=== PATIENT | male | born 1990 | race Two or more races ===

== ENCOUNTER 2017-05-05 23:11 | Emergency (ER) | payer OTHER ==
[~2017-05-05 23:11] MED LIST: BENZ200C15 PO; DIPH-1 PO; HYDR RC; HYDR28.33 TOP; NAPR500T75 PO; ONDA4TAB PO; PROM5SYR PO
--- NOTE | 2017-05-05 23:16 | ER Report ---
History and Physical Time Seen By MD: 23:13 HPI/ROS CHIEF COMPLAINT: Diarrhea and crampy abdominal pain HISTORY OF PRESENT ILLNESS: 27-year-old male presents ambulatory to the ER complaining of diarrhea for one day. He notes diffuse abdominal cramping and some nausea. He's had no vomiting. He ate some cake that was left over last night. Patient notes some irritation of his chronic hemorrhoids. Patient denies fever or chills. Patient denies recent antibiotic use or exposure to ill contacts. REVIEW OF SYSTEMS: Respiratory: No cough, no dyspnea. Cardiovascular: No chest pain, no palpitations. Gastrointestinal: As above Musculoskeletal: No back pain. Allergies: Coded Allergies: No Known Drug Allergies (Unverified , 05/05/17) Home Meds Active Scripts Ondansetron (ZOFRAN ODT) 4 Mg Tab.rapdis, 4 MG PO every 6 hours Y for NAUSEA/ VOMITING, #15 TAB TAKE 1 TABLET BY MOUTH EVERY 12 HOURS Prov:STEPHANIE HILL DO 05/05/17 Discontinued Scripts Hydrocortisone (Proctosol-Hc) 2.5 % Crm.pe.torsten, 1 TORSTEN TOP BID, #1 TUBE Prov:JOHN LU PA-C 12/17/16 Past Medical/Surgical History Patient has a past medical history of hemorrhoids, constipation, depression. Patient has surgical history of oral surgery. Reviewed Nurses Notes: Yes Old Medical Records Reviewed: Yes Hx Smoking: Yes Smoking Status: Current: Every Day Smoker Hx Substance Use Disorder: No Hx Alcohol Use: No (FORMER) Constitutional Vital Sign - Last 24 Hours 05/05/17 05/05/17 05/05/17 05/05/17 23:16 23:26 23:30 23:41 Temp 97.9 Pulse 104 87 75 Resp 16 B/P (MAP) 138/95 121/86 (98) Pulse Ox 94 98 94 O2 Delivery Room Air 05/05/17 05/05/17 05/06/17 05/06/17 23:45 23:56 00:00 00:11 Pulse 67 ??? B/P (MAP) 119/84 (96) 119/86 (97) Pulse Ox 98 95 05/06/17 00:16 Pulse ??? Pulse Ox 97 Physical Exam General Appearance: The patient is alert, has no immediate need for airway protection and no current signs of toxicity. Vital signs stable, afebrile, pulse ox normal Eyes: Pupils equal and round no injection. Respiratory: Chest is non tender, lungs are clear to auscultation. Cardiac: regular rate and rhythm Gastrointestinal: Abdomen is soft and non tender, no masses, bowel sounds normal. Musculoskeletal: Neck: Neck is supple and non tender. Extremities have full range of motion and are non tender. Skin: No rashes or lesions. DIFFERENTIAL DIAGNOSIS: After history and physical exam differential diagnosis was considered for food poisoning, viral syndrome, gastroenteritis, IBS. Medical Decision Making Data Points Result Diagram: 05/05/172 05/05/172 Laboratory Hematology Test 05/05/17 23:22 Red Blood Count 6.12 M/uL (4.00-5.60) Mean Corpuscular Volume 82.1 fL (80.0-96.0) Mean Corpuscular Hemoglobin 27.4 pg (26.0-33.0) Mean Corpuscular Hemoglobin Concent 33.3 g/dL (32.0-36.0) Red Cell Distribution Width 13.7 % (11.5-14.5) Mean Platelet Volume 6.9 fL (7.2-11.1) Neutrophils (%) (Auto) 24.5 % (39.4-72.5) Lymphocytes (%) (Auto) 65.8 % (17.6-49.6) Monocytes (%) (Auto) 7.6 % (4.1-12.4) Eosinophils (%) (Auto) 1.1 % (0.4-6.7) Basophils (%) (Auto) 1.0 % (0.3-1.4) Nucleated RBC Relative Count (auto) 0.1 /100WBC Neutrophils # (Auto) 1.2 K/uL (2.0-7.4) Lymphocytes # (Auto) 3.3 K/uL (1.3-3.6) Monocytes # (Auto) 0.4 K/uL (0.3-1.0) Eosinophils # (Auto) 0.1 K/uL (0.0-0.5) Basophils # (Auto) 0.1 K/uL (0.0-0.1) Nucleated RBC Absolute Count (auto) 0.00 K/uL Peripheral Blood Smear Yes Y/N Sodium Level 141 mmol/L (137-145) Potassium Level 3.2 mmol/L (3.5-5.0) Chloride Level 98 mmol/L (98-107) Carbon Dioxide Level 28 mmol/L (22-30) Blood Urea Nitrogen 13 mg/dl (9-21) Creatinine 1.00 mg/dl (0.66-1.25) Glomerular Filtration Rate Calc > 60.0 Random Glucose 117 mg/dl (75-110) Calcium Level 9.8 mg/dl (8.4-10.2) Total Bilirubin 1.6 mg/dl (0.2-1.3) Aspartate Amino Transf (AST/SGOT) 51 U/L (0-35) Alanine Aminotransferase (ALT/SGPT) 31 U/L (0-56) Alkaline Phosphatase 59 U/L (0-126) Total Protein 8.7 gm/dl (6.3-8.2) Albumin 4.9 g/dl (3.5-5.0) Chemistry Test 05/05/17 23:22 White Blood Count 5.1 k/uL (4.5-11.0) Red Blood Count 6.12 M/uL (4.00-5.60) Hemoglobin 16.7 g/dL (14.0-18.0) Hematocrit 50.3 % (42.0-52.0) Mean Corpuscular Volume 82.1 fL (80.0-96.0) Mean Corpuscular Hemoglobin 27.4 pg (26.0-33.0) Mean Corpuscular Hemoglobin Concent 33.3 g/dL (32.0-36.0) Red Cell Distribution Width 13.7 % (11.5-14.5) Platelet Count 305 K/uL (150-450) Mean Platelet Volume 6.9 fL (7.2-11.1) Neutrophils (%) (Auto) 24.5 % (39.4-72.5) Lymphocytes (%) (Auto) 65.8 % (17.6-49.6) Monocytes (%) (Auto) 7.6 % (4.1-12.4) Eosinophils (%) (Auto) 1.1 % (0.4-6.7) Basophils (%) (Auto) 1.0 % (0.3-1.4) Nucleated RBC Relative Count (auto) 0.1 /100WBC Neutrophils # (Auto) 1.2 K/uL (2.0-7.4) Lymphocytes # (Auto) 3.3 K/uL (1.3-3.6) Monocytes # (Auto) 0.4 K/uL (0.3-1.0) Eosinophils # (Auto) 0.1 K/uL (0.0-0.5) Basophils # (Auto) 0.1 K/uL (0.0-0.1) Nucleated RBC Absolute Count (auto) 0.00 K/uL Peripheral Blood Smear Yes Y/N Glomerular Filtration Rate Calc > 60.0 Calcium Level 9.8 mg/dl (8.4-10.2) Total Bilirubin 1.6 mg/dl (0.2-1.3) Aspartate Amino Transf (AST/SGOT) 51 U/L (0-35) Alanine Aminotransferase (ALT/SGPT) 31 U/L (0-56) Alkaline Phosphatase 59 U/L (0-126) Total Protein 8.7 gm/dl (6.3-8.2) Albumin 4.9 g/dl (3.5-5.0) ED Course/Re-evaluation Clinical Indication for ER IV: Hydration, IV Access ED Course Patient was admitted to an examination room. H&P was done. The differential diagnoses was considered. On clinical examination. Patient is a benign nonsurgical abdomen. He's been having diarrhea for 24 hours. He ate what he thought was spoiled food. He likely has food poisoning. Treated with IV fluid hydration, Zofran for his nausea and Toradol for his abdominal cramps. His diagnostic laboratory studies are unremarkable. He is discharged home. A conservative treatment plan of clear liquid diet and ibuprofen. Patient's given a prescription for Zofran for management of his nausea. Decision to Disposition Date: May 05, 2017 Decision to Disposition Time: 23:47 Depart Departure Latest Vital Signs Vital Signs Date Time Temp Pulse Resp B/P (MAP) Pulse Ox O2 Delivery O2 Flow Rate FiO2 05/06/17 00:16 ??? 97 05/06/17 00:00 119/86 (97) 05/05/17 23:16 97.9 16 Room Air Impression: Primary Impression: Food poisoning Additional Impression: Diarrhea Condition: Improved Disposition: HOME OR SELF-CARE New Scripts Ondansetron (ZOFRAN ODT) 4 Mg Tab.rapdis 4 MG PO every 6 hours Y for NAUSEA/VOMITING, #15 TAB TAKE 1 TABLET BY MOUTH EVERY 12 HOURS Prov: STEPHANIE HILL DO 05/05/17 Patient Instructions: Clear Liquid Diet (ED), Food Poisoning (ED) Additional Instructions: Follow clear liquid diet for 24-48 hours, then advance to the brat diet, bananas , rice, applesauce, toast Avoid fatty food, greasy foods, dairy and vegetables for 48 hours Take ibuprofen 200 mg 3 tablets 3 times a day for inflammatory pain relief Use Zofran/ondansetron to control nausea as needed, one tablet every 6 hours Follow-up with [facility] or your primary care physician if unimproved in 3- 5 days Problem Qualifiers Primary Impression: Food poisoning Encounter type: initial encounter Injury intent: accidental or unintentional Qualified Codes: T62.91XA - Toxic effect of unspecified noxious substance eaten as food, accidental (unintentional), initial encounter Additional Impression: Diarrhea Diarrhea type: unspecified type Qualified Codes: R19.7 - Diarrhea, unspecified STEPHANIE HILL DO May 05, 2017 23:16
[2017-05-05] MEDS ORDERED: NS(*) 0.9% 1000 ML BAG 1,000 ML IV ONE (23:28)
[2017-05-05] MEDS ORDERED: ONDANSETRON 4 MG/2 ML VIAL IVP ONE (23:30)
[2017-05-05] MEDS ORDERED: KETOROLAC 30 MG/ML VIAL IVP ONE (23:30)
[2017-05-05 23:41] LABS: PLATELET COUNT, AUTOMATED 305 K/uL (150-450)
[2017-05-05] MEDS ORDERED: ONDA4TAB PO (23:49)
[2017-05-06] VITALS: BP 119/86
[2017-05-06] MEDS ORDERED: ONDANSETRON 4 MG ODT TH SL ONE (00:05)
== END 2017-05-06 00:21 | disposition home or self-care (01) ==
LOC: ER 23:25
DX: T53.91XA Toxic effect of unspecified halogen derivatives of aliphatic and aromatic hydrocarbons, accidental (unintentional), initial encounter (principal)
CPT/HCPCS: 85025; 96361; 96374; 96375; 99284; J1885; J2405; J7030; S0119; 82040; 82247; 82310; 82374; 82435; 82565; 82947; 84075; 84132; 84155; 84295; 84450; 84460; 84520

== ENCOUNTER 2017-08-10 22:00 | Emergency (ER) | payer OTHER ==
[2017-08-10 22:08] VITALS: BP 139/109
--- NOTE | 2017-08-10 22:17 | ER Report ---
History and Physical Time Seen By MD: 22:10 HPI/ROS CHIEF COMPLAINT: Rectal bleeding HISTORY OF PRESENT ILLNESS: 27-year-old male presents ambulatory to the ER. He noted an episode of rectal bleeding tonight when he passed his bowels. He notes a fair amount of blood in the bowl. Patient has a history of external hemorrhoids was seen here several months ago. He was referred to general surgery. He has not followed up. Patient denies lightheadedness or dizziness. Patient has a history of external hemorrhoids. REVIEW OF SYSTEMS: Respiratory: No cough, no dyspnea. Cardiovascular: No chest pain, no palpitations. Gastrointestinal: No vomiting, no abdominal pain. Musculoskeletal: No back pain. Allergies: Coded Allergies: No Known Drug Allergies (Unverified , 08/10/17) Home Meds Discontinued Scripts Ondansetron (ZOFRAN ODT) 4 Mg Tab.rapdis, 4 MG PO every 6 hours Y for NAUSEA/ VOMITING, #15 TAB TAKE 1 TABLET BY MOUTH EVERY 12 HOURS Prov:STEPHANIE HILL DO 05/05/17 Reviewed Nurses Notes: Yes Old Medical Records Reviewed: Yes Hx Smoking: Yes Smoking Status: Current: Every Day Smoker Hx Substance Use Disorder: No Hx Alcohol Use: No (FORMER) Constitutional Vital Sign - Last 24 Hours 08/10/17 08/10/17 08/10/17 08/10/17 22:08 22:15 22:30 22:45 Temp 97.9 Pulse 77 84 70 69 Resp 16 B/P (MAP) 139/109 Pulse Ox 95 96 96 94 08/10/17 23:00 Pulse 77 Pulse Ox 95 Physical Exam General Appearance: The patient is alert, has no immediate need for airway protection and no current signs of toxicity. Vital signs stable, afebrile, pulse ox normal Eyes: Pupils equal and round no injection. Respiratory: Chest is non tender, lungs are clear to auscultation. Cardiac: regular rate and rhythm Gastrointestinal: Abdomen is soft and non tender, no masses, bowel sounds normal. Rectal examination shows friable external hemorrhoids. Musculoskeletal: Neck: Extremities have full range of motion and are non tender. Skin: No rashes or lesions. DIFFERENTIAL DIAGNOSIS: After history and physical exam differential diagnosis was considered for lower GI bleeding including but not limited to diverticulosis , tumor, AVM, hemorrhoid and anal fissure. Medical Decision Making Data Points Result Diagram: 08/10/17223008/10/172230 Laboratory Hematology Test 08/10/17 22:31 Red Blood Count 5.74 M/uL (4.00-5.60) Mean Corpuscular Volume 81.1 fL (80.0-96.0) Mean Corpuscular Hemoglobin 27.2 pg (26.0-33.0) Mean Corpuscular Hemoglobin Concent 33.5 g/dL (32.0-36.0) Red Cell Distribution Width 14.0 % (11.5-14.5) Mean Platelet Volume 6.7 fL (7.2-11.1) Neutrophils (%) (Auto) 38.4 % (39.4-72.5) Lymphocytes (%) (Auto) 53.6 % (17.6-49.6) Monocytes (%) (Auto) 6.0 % (4.1-12.4) Eosinophils (%) (Auto) 0.6 % (0.4-6.7) Basophils (%) (Auto) 1.4 % (0.3-1.4) Nucleated RBC Relative Count (auto) 0.0 /100WBC Neutrophils # (Auto) 2.9 K/uL (2.0-7.4) Lymphocytes # (Auto) 4.0 K/uL (1.3-3.6) Monocytes # (Auto) 0.5 K/uL (0.3-1.0) Eosinophils # (Auto) 0.0 K/uL (0.0-0.5) Basophils # (Auto) 0.1 K/uL (0.0-0.1) Nucleated RBC Absolute Count (auto) 0.00 K/uL Prothrombin Time 13.7 seconds (12.0-14.4) Prothromb Time International Ratio 1.05 Activated Partial Thromboplast Time 27 seconds (23-35) Sodium Level 140 mmol/L (137-145) Potassium Level 3.4 mmol/L (3.5-5.0) Chloride Level 99 mmol/L (98-107) Carbon Dioxide Level 29 mmol/L (22-30) Blood Urea Nitrogen 15 mg/dl (9-21) Creatinine 0.90 mg/dl (0.66-1.25) Glomerular Filtration Rate Calc > 60.0 Random Glucose 83 mg/dl (75-110) Calcium Level 9.0 mg/dl (8.4-10.2) Total Bilirubin 0.8 mg/dl (0.2-1.3) Aspartate Amino Transf (AST/SGOT) 24 U/L (0-35) Alanine Aminotransferase (ALT/SGPT) 21 U/L (0-56) Alkaline Phosphatase 61 U/L (0-126) Total Protein 7.7 g/dl (6.3-8.2) Albumin 4.3 g/dl (3.5-5.0) Chemistry Test 08/10/17 22:31 White Blood Count 7.5 k/uL (4.5-11.0) Red Blood Count 5.74 M/uL (4.00-5.60) Hemoglobin 15.6 g/dL (14.0-18.0) Hematocrit 46.6 % (42.0-52.0) Mean Corpuscular Volume 81.1 fL (80.0-96.0) Mean Corpuscular Hemoglobin 27.2 pg (26.0-33.0) Mean Corpuscular Hemoglobin Concent 33.5 g/dL (32.0-36.0) Red Cell Distribution Width 14.0 % (11.5-14.5) Platelet Count 297 K/uL (150-450) Mean Platelet Volume 6.7 fL (7.2-11.1) Neutrophils (%) (Auto) 38.4 % (39.4-72.5) Lymphocytes (%) (Auto) 53.6 % (17.6-49.6) Monocytes (%) (Auto) 6.0 % (4.1-12.4) Eosinophils (%) (Auto) 0.6 % (0.4-6.7) Basophils (%) (Auto) 1.4 % (0.3-1.4) Nucleated RBC Relative Count (auto) 0.0 /100WBC Neutrophils # (Auto) 2.9 K/uL (2.0-7.4) Lymphocytes # (Auto) 4.0 K/uL (1.3-3.6) Monocytes # (Auto) 0.5 K/uL (0.3-1.0) Eosinophils # (Auto) 0.0 K/uL (0.0-0.5) Basophils # (Auto) 0.1 K/uL (0.0-0.1) Nucleated RBC Absolute Count (auto) 0.00 K/uL Prothrombin Time 13.7 seconds (12.0-14.4) Prothromb Time International Ratio 1.05 Activated Partial Thromboplast Time 27 seconds (23-35) Glomerular Filtration Rate Calc > 60.0 Calcium Level 9.0 mg/dl (8.4-10.2) Total Bilirubin 0.8 mg/dl (0.2-1.3) Aspartate Amino Transf (AST/SGOT) 24 U/L (0-35) Alanine Aminotransferase (ALT/SGPT) 21 U/L (0-56) Alkaline Phosphatase 61 U/L (0-126) Total Protein 7.7 g/dl (6.3-8.2) Albumin 4.3 g/dl (3.5-5.0) Coagulation Test 08/10/17 22:31 Prothrombin Time 13.7 seconds Prothromb Time International Ratio 1.05 Activated Partial Thromboplast Time 27 seconds ED Course/Re-evaluation ED Course Patient was admitted to an examination room. H&P was done. The differential diagnosis was considered. On clinical examination. Patient has benign abdominal examination. His rectal examination shows friable external hemorrhoids likely the source of his rectal bleeding. Which seem unlikely that he has cancer. Patient's H&H and coags are normal. Patient does need to follow up with general surgery. Patient states a follow-up with general surgery. [place]. Patient advised to use [id number] stool softeners and hemorrhoidal cream. Decision to Disposition Date: Aug 10, 2017 Decision to Disposition Time: 22:50 Depart Departure Latest Vital Signs Vital Signs Date Time Temp Pulse Resp B/P (MAP) Pulse Ox O2 Delivery O2 Flow Rate FiO2 08/10/17 23:00 77 95 08/10/17 22:08 97.9 16 139/109 Impression: Primary Impression: External hemorrhoids without complication Condition: Improved Disposition: HOME OR SELF-CARE Referrals: CALLIE RANKIN MD New Scripts No Active Prescriptions or Reported Meds Patient Instructions: Hemorrhoids (ED) Additional Instructions: Use [id number] hemorrhoid cream as needed Take stool softeners Follow-up with general surgery within 3-4 weeks STEPHANIE HILL DO Aug 10, 2017 22:17
[2017-08-10 22:34] LABS: PLATELET COUNT, AUTOMATED 297 K/uL (150-450)
[2017-08-10 22:44] LABS: INR 1.05
== END 2017-08-10 23:14 | disposition home or self-care (01) ==
LOC: ER 22:29
DX: K64.4 Residual hemorrhoidal skin tags (principal); F17.210 Nicotine dependence, cigarettes, uncomplicated
CPT/HCPCS: 36415; 82040; 82247; 82310; 82374; 82435; 82565; 82947; 84075; 84132; 84155; 84295; 84450; 84460; 84520; 85025; 85610; 85730; 99282